=== PATIENT | male | born 1955 | race Caucasian/White ===

== ENCOUNTER → 2020-09-30 | Outpatient (CLI) | payer MEDICARE, SELFPAY ==
[~2020-09-30] MED LIST: ADVAIR 250-501 EACH INH; ASPIRIN EC81 MG PO; CEFUROXIME250 MG PO; CIPRO500 MG PO; CLARITIN10 M2 PO; FLAGYL500 MG PO; IMDUR ER TAB 3030 MG PO; ISOSORBIDE MONO10 MG PO; NITROSTAT0.4 MG SL; NORCO 5-325 TA1 EACH PO; NORVASC10 MG PO; PLAVIX75 MG PO; PRAVACHOL40 MG PO; PRINIVIL20 MG PO; PROAIR DIGIHAL90 MCG INH; PROTONIX 40 MG40 M1 PO
[2020-09-30 14:28] LABS: HEMOGLOBIN 12.3 gm/dl (14.0-17.5); RED BLOOD COUNT 4.05 M/UL (4.20-5.50); WHITE BLOOD COUNT 7.5 K/UL (4.5-11.0)
[2020-09-30 14:33] LABS: BUN/CREATININE RATIO 20 (0-10)
== END ==
LOC: LAB 13:11
PROVIDERS: Nurse Practitioner Family
DX: R06.02 Shortness of breath (principal); R53.83 Other fatigue; I10 Essential (primary) hypertension; E78.5 Hyperlipidemia, unspecified
CPT/HCPCS: 36415; 71046; 80053; 80061; 84443; 85025

== ENCOUNTER → 2021-02-26 | Outpatient (CLI) | payer MEDICARE ==
[2021-02-26 13:04] LABS: HEMOGLOBIN 14.1 gm/dl (14.0-17.5); RED BLOOD COUNT 4.46 M/UL (4.20-5.50); WHITE BLOOD COUNT 6.9 K/UL (4.5-11.0)
[2021-02-26 13:34] LABS: BUN/CREATININE RATIO 18 (0-10)
== END ==
LOC: LAB 10:52
PROVIDERS: Nurse Practitioner Family
DX: R68.89 Other general symptoms and signs (principal); R79.89 Other specified abnormal findings of blood chemistry; E78.5 Hyperlipidemia, unspecified; R53.83 Other fatigue; R73.09 Other abnormal glucose; R97.20 Elevated prostate specific antigen [PSA]; E55.9 Vitamin D deficiency, unspecified; D51.0 Vitamin B12 deficiency anemia due to intrinsic factor deficiency; R06.02 Shortness of breath; R05.9 Cough, unspecified; Z12.5 Encounter for screening for malignant neoplasm of prostate
CPT/HCPCS: 36415; 71046; 80053; 80061; 82607; 82728; 83036; 83540; 83550; 84443; 85025; G0103

== ENCOUNTER → 2021-04-18 | Outpatient (CLI) | payer MEDICARE, SELFPAY | LOC: KOH-I 10:16 | DX: M54.2 Cervicalgia (principal); M54.50 Low back pain, unspecified; M47.812 Spondylosis without myelopathy or radiculopathy, cervical region; M47.814 Spondylosis without myelopathy or radiculopathy, thoracic region; M47.816 Spondylosis without myelopathy or radiculopathy, lumbar region | CPT/HCPCS: 72040; 72070; 72100 ==